=== PATIENT | male | born 1970 | race Two or more races ===

== ENCOUNTER 2019-07-12 00:01 | Emergency (ER) | payer SELFPAY ==
[~2019-07-12] VITALS: Ht 172.7 cm; Wt 90.7 kg
[2019-07-12 00:15] VITALS: BP 109/67
[2019-07-12 00:45] LABS: BASO % 1 % (0-3); EOS # 0.2 x10^3/uL (0.0-0.7); EOS % 3 % (0-3); HEMATOCRIT 39.8 % (39.0-53.0); HEMOGLOBIN 13.5 g/dL (13.0-17.5); LYMPH # 1.2 x10^3/uL (1.0-4.8); LYMPH % 18 % (24-48); MEAN CORPUSCULAR HEMOGLOBIN 28 pg (25-35); MEAN CORPUSCULAR HGB CONC 34 g/dL (31-37); MEAN CORPUSCULAR VOLUME 83 fL (79-100); MONO # 0.7 x10^3/uL (0.0-1.1); MONO % 10 % (0-9); NEUT # 4.4 x10^3/uL (1.8-7.7); NEUT % 68 % (31-73); PLATELET COUNT 297 x10^3/uL (140-400); RED BLOOD COUNT 4.78 x10^6/uL (4.30-5.70); RED CELL DISTRIBUTION WIDTH 13.2 % (11.5-14.5); WHITE BLOOD COUNT 6.5 x10^3/uL (4.0-11.0)
--- NOTE | 2019-07-12 00:50 | PHYS DOC ---
Past Medical History Past Medical History: No Pertinent History Past Surgical History: Appendectomy Alcohol Use: Occasionally Drug Use: None Adult General Chief Complaint Chief Complaint: COUGH HPI HPI 49-year-old male presents to the emergency department with complaints of cough. He describes white sputum production. Patient was seen at within the last 5 days diagnosed with pneumonia and started on antibiotic therapy. He is currently on doxycycline however states he feels like his symptoms are worsening. He den ies any fever, diarrhea, nausea or vomiting. He has had decreased appetite. Nothing makes his symptoms worse, nothing makes his symptoms better. No signs reviewed saturations 100% blood pressures 110 systolically, he is not tachycardic Review of Systems Review of Systems Constitutional: Denies fever or chills [] HENT: congestion Respiratory: cough/SOB Cardiovascular: No additional information not addressed in HPI [] GI: Denies abdominal pain, nausea, vomiting, bloody stools or diarrhea [] Musculoskeletal: Denies back pain or joint pain [] Neurologic: Denies headache, focal weakness or sensory changes [] All other systems were reviewed and found to be within normal limits, except as documented in this note. Allergies Allergies Allergies Coded Allergies Type Severity Reaction Last Updated Verified No Known Drug Allergies 07/12/19 No Physical Exam Physical Exam Constitutional: Well developed, well nourished, no acute distress, non-toxic appearance. [] HENT: Normocephalic, atraumatic, bilateral external ears normal, oropharynx moist, no oral exudates, nose normal. [] Eyes: PERRLA, EOMI, conjunctiva normal, no discharge. [] Cardiovascular:Heart rate regular rhythm, no murmur [] Lungs & Thorax: Bilateral breath sounds present however decreased Abdomen: Bowel sounds normal, soft, no tenderness, no masses, no pulsatile masses. [] Skin: Warm, dry, no erythema, no rash. [] Extremities: No tenderness, no edema. [] Neurologic: Alert and oriented X 3, no focal deficits noted. [] Psychologic: Affect normal, judgement normal, mood normal. [] Current Patient Data Vital Signs Vital Signs Date Time Temp Pulse Resp B/P (MAP) Pulse Ox O2 Delivery O2 Flow Rate FiO2 07/12/19 00:15 97.9 94 18 109/67 (81) 100 Room Air 97.9 Lab Values Laboratory Tests Test 12/30/19 00:35 White Blood Count 6.5 x10^3/uL (4.0-11.0) Red Blood Count 4.78 x10^6/uL (4.30-5.70) Hemoglobin 13.5 g/dL (13.0-17.5) Hematocrit 39.8 % (39.0-53.0) Mean Corpuscular Volume 83 fL (79-100) Mean Corpuscular Hemoglobin 28 pg (25-35) Mean Corpuscular Hemoglobin Concent 34 g/dL (31-37) Red Cell Distribution Width 13.2 % (11.5-14.5) Platelet Count 297 x10^3/uL (140-400) Neutrophils (%) (Auto) 68 % (31-73) Lymphocytes (%) (Auto) 18 % (24-48) L Monocytes (%) (Auto) 10 % (0-9) H Eosinophils (%) (Auto) 3 % (0-3) Basophils (%) (Auto) 1 % (0-3) Neutrophils # (Auto) 4.4 x10^3/uL (1.8-7.7) Lymphocytes # (Auto) 1.2 x10^3/uL (1.0-4.8) Monocytes # (Auto) 0.7 x10^3/uL (0.0-1.1) Eosinophils # (Auto) 0.2 x10^3/uL (0.0-0.7) Basophils # (Auto) 0.0 x10^3/uL (0.0-0.2) Sodium Level 136 mmol/L (136-145) Potassium Level 3.7 mmol/L (3.5-5.1) Chloride Level 101 mmol/L (98-107) Carbon Dioxide Level 25 mmol/L (21-32) Anion Gap 10 (6-14) Blood Urea Nitrogen 8 mg/dL (8-26) Creatinine 0.9 mg/dL (0.7-1.3) Estimated GFR (Cockcroft-Gault) 89.7 BUN/Creatinine Ratio 9 (6-20) Glucose Level 121 mg/dL (70-99) H Calcium Level 8.6 mg/dL (8.5-10.1) Total Bilirubin 0.6 mg/dL (0.2-1.0) Aspartate Amino Transferase (AST) 55 U/L (15-37) H Alanine Aminotransferase (ALT) 91 U/L (16-63) H Alkaline Phosphatase 73 U/L (46-116) Total Protein 7.6 g/dL (6.4-8.2) Albumin 2.9 g/dL (3.4-5.0) L Albumin/Globulin Ratio 0.6 (1.0-1.7) L Laboratory Tests 07/12/19 00:35 Laboratory Tests 07/12/19 00:35 EKG EKG [] Radiology/Procedures Radiology/Procedures Xray with bilateral PNA appreciated [] Course & Med Decision Making Course & Med Decision Making Pertinent Labs and Imaging studies reviewed. (See chart for details) []49-year-old male presents to the emergency department with complaints of cough. He describes white sputum production. Patient was seen at within the last 5 days diagnosed with pneumonia and started on antibiotic therapy. He is currently on doxycycline however states he feels like his symptoms are wo rsening. He denies any fever, diarrhea, nausea or vomiting. He has had decreased appetite. Nothing makes his symptoms worse, nothing makes his symptoms better. No signs reviewed saturations 100% blood pressures 110 systolically, he is not tachycardic Labs reviewed CXR reviewed Recommend discontinuing doxycycline Rx for Augmenting BID x 7 days provided upon discharge Rx for proair provided up on discharge Return precautions provided May Disclaimer May Disclaimer This electronic medical record was generated, in whole or in part, using a voice recognition dictation system. Departure Departure Impression: Primary Impression: Pneumonia Disposition: 01 HOME, SELF-CARE Condition: STABLE Referrals: NO PCP (PCP) Patient Instructions: Pneumonia, Adult, [id number] Additional Instructions: Recommend follow up with PCP 3 - 5 days Return to the ER with worsening symptoms, intractable pain, fever, altered mental status Tylenol/Motrin as needed for pain Take antibiotics/INH as prescribed Scripts Albuterol Sulfate (PROAIR HFA INHALER) 8.5 Gm Hfa.aer.ad 2 PUFF INH PRN Q6HRS PRN for SHORTNESS OF BREATH, #1 INHALER 0 Refills Prov: JACINTO VENEGAS MD 07/12/19 Amoxicillin/Potassium Clav (AUGMENTIN 875-125 TABLET) 1 Each Tablet 1 TAB PO Q12HR, #20 TAB Prov: JACINTO VENEGAS MD 07/12/19 Problem Qualifiers Primary Impression: Pneumonia Pneumonia type: due to unspecified organism Laterality: unspecified laterality Lung location: unspecified part of lung Qualified Codes: J18.9 - Pneumonia, unspecified organism JACINTO VENEGAS MD Jul 12, 2019 00:50
[2019-07-12 00:55] LABS: CALCIUM 8.6 mg/dL (8.5-10.1); CREATININE 0.9 mg/dL (0.7-1.3); GFR 89.7; POTASSIUM 3.7 mmol/L (3.5-5.1)
[2019-07-12 01:03] LABS: ALBUMIN 2.9 g/dL (3.4-5.0); ALBUMIN/GLOBULIN RATIO 0.6 (1.0-1.7); TOTAL BILIRUBIN 0.6 mg/dL (0.2-1.0); TOTAL PROTEIN 7.6 g/dL (6.4-8.2)
[2019-07-12] MEDS ORDERED: ALBU2.5V8 INH (01:10)
[2019-07-12] MEDS ORDERED: AMOX1TAB61 PO (01:10)
--- NOTE | 2019-07-12 07:43 | RAD ---
CHEST AP ONLY Clinical Indication: Shortness of breath and cough Comparison: None. Findings: PA standing upright frontal view of the chest was obtained. The cardiomediastinal silhouette is normal. Patchy infiltrates involving the lower lung macario are noted greater on the left. There is no pneumothorax. No pleural effusion is appreciated. No acute bone abnormality. IMPRESSION: Patchy infiltrates throughout the lung bases greater on the left. Follow-up to resolution recommended. Electronically signed by: Ra Blake MD (07/12/2019 7:40 AM) [facility] [place]
== END 2019-07-12 01:20 | disposition home or self-care (01) ==
LOC: ER 00:01
DX: J18.9 Pneumonia, unspecified organism (principal); R63.0 Anorexia; Z90.89 Acquired absence of other organs
CPT/HCPCS: 36415; 71045; 80053; 85025; 99285